=== PATIENT | female | born 1935 | race African-American/Black ===

== ENCOUNTER 2016-11-16 17:56 | Inpatient (IN) | payer SELFPAY ==
--- NOTE | 2016-11-16 18:11 | ER Document Report ---
ED Medical Screen (RME) - General Stated Complaint: STROKE LIKE SYMPTOMS Notes: 81 yo female brought to ED by family for slurred speech and confusion. family found pt with vomit on her. last seen normal approx 5pm. pt speaks [place]. no previous hx/o CVA
[2016-11-16] MEDS ORDERED: ONDANSETRON HCL INJ/PF 4 MG/2 ML SDV ONE (18:28)
[2016-11-16 19:06] LABS: HEMATOCRIT 39.8 % (36.0-47.0); HEMOGLOBIN 13.3 g/dL (12.0-15.5); HGB HCT DIFFERENCE 0.1; MEAN CORPUSCULAR HEMOGLOBIN 27.4 pg (27.0-33.4); MEAN CORPUSCULAR HGB CONC 33.4 g/dL (32.0-36.0); MEAN CORPUSCULAR VOLUME 82 fl (80-97); RED BLOOD COUNT 4.84 10^6/uL (3.72-5.28); RED CELL DISTRIBUTION WIDTH 15.9 % (11.5-14.0); WHITE BLOOD COUNT 11.3 10^3/uL (4.0-10.5)
[2016-11-16 19:13] LABS: ALANINE AMINOTRANSFERASE 19 U/L (9-52); ALBUMIN 4.7 g/dL (3.5-5.0); ALKALINE PHOSPHATASE 130 U/L (38-126); ANION GAP 17 (5-19); ASPARTATE AMINO TRANSFERASE 28 U/L (14-36); BILIRUBIN,TOTAL 2.2 mg/dL (0.2-1.3); BLOOD UREA NITROGEN 14 mg/dL (7-20); CALCIUM 10.1 mg/dL (8.4-10.2); CARBON DIOXIDE 26 mmol/L (22-30); CHLORIDE 91 mmol/L (98-107); CREATINE KINASE 37 U/L (30-135); CREATININE RESULT 0.73 mg/dL (0.52-1.25); POTASSIUM 3.4 mmol/L (3.6-5.0); SODIUM 133.5 mmol/L (137-145)
[2016-11-16 19:23] LABS: CREATINE KINASE MB 0.52 ng/mL (<4.55)
[2016-11-16 19:26] LABS: TROPONIN I < 0.012 ng/mL
[2016-11-16 19:33] LABS: GLUCOSE 607 mg/dL (75-110)
[2016-11-16] MEDS ORDERED: NORMAL SALINE 1000 ML 1,000 ML IV ONE (19:34)
[2016-11-16] MEDS ORDERED: INSULIN REG, HUMAN 100 UNIT/ML 3 ML VIAL (PYX) ONE ×2 (19:38→19:40)
[2016-11-16 19:42] LABS: BASOPHILS % (MANUAL) 0 % (0-2); EOSINOPHILS % (MANUAL) 1 % (0-6); LYMPHOCYTES % (MANUAL) 32 % (13-45); NUCLEATED RED BLOOD CELLS 2 /100 WBC (0); TOTAL CELLS COUNTED 100
[2016-11-16] MEDS ORDERED: INSULIN REG, HUMAN 100 UNIT/ML 3 ML VIAL (PYX) IV ONE (19:43)
[2016-11-16 19:44] LABS: ANISOCYTOSIS SLIGHT; TARGET CELLS 1+; TOXIC GRANULATION SLIGHT
[2016-11-16 19:55] LABS: PARTIAL THROMBOPLASTIN TIME 22.4 SEC (23.5-35.8)
[2016-11-16 20:00] LABS: PROTHROMBIN TIME 12.9 SEC (11.4-15.4)
--- NOTE | 2016-11-16 20:05 | ER Document Report ---
ED General - General Time seen by provider: 19:30 Mode of Arrival: Medic Information source: Relative <TRIPANNEMARIE Hagan - Last Filed: 11/16/16 20:00> <BELTRAN KAUR - Last Filed: 11/17/16 03:58> - General Chief Complaint: S/S of Possible Stroke Stated Complaint: STROKE LIKE SYMPTOMS Notes: 81-year-old female with report by son that she became confused and had slurred speech and vomiting and complaint of right-sided headache about 5:00 this afternoon. Son reports patient had some diarrhea yesterday but seemed fine this morning. He reports that she is from [place] and immigrated here July. He is unfamiliar with most of her past medical history but says that she is on no medicines now. Patient does not speak Latvian but he reports that she is confused and not speaking clearly in her [place]in[place] and sioux language. He reports that she is also not following commands and seems agitated. 2 His knowledge she has had no recent fever, chills, cough, or complaints of pain anywhere. Physical Exam: General: Alert, confused and agitated HEENT: Normocephalic. Atraumatic. PERRLA. Extraocular movements intact. Oropharynx clear. He does membranes dry Neck: Supple. Non-tender. No JVD Respiratory: No respiratory distress. Clear and equal breath sounds bilaterally. Cardiovascular: The cardiac rhythm. Abdominal: Normal Inspection. Soft, non-tender. No distension. Normal Bowel Sounds. Back: Non-tender. No deformity or step off. Extremities: Moves all four extremities. Upper extremities: Normal inspection. Non-tender. Normal color. Normal ROM. Normal temperature. Lower extremities: Normal inspection. Non-tender. No edema. Normal color. Normal ROM. Normal temperature. Neurological: Per the patient's son her speech is garbled. She appears to have a minimal left facial droop but cannot cooperate with further cranial nerve testing. She is observed to move all fours extremities spontaneously with what appears to be equal strength but cannot otherwise cooperate with formal neurologic testing. . Skin: Warm. Dry. Normal color. (ANNEMARIE DOMINIQUE) Past Medical History - General Cannot obtain history due to: Uncooperative, Altered mental status - Social History Smoking Status: Never Smoker Family History: Other - None known to son patient could not answer Renal/ Medical History: Denies: Hx Peritoneal Dialysis Surgical Hx: Negative <ANNEMARIE DOMINIQUE - Last Filed: 11/16/16 20:00> Review of Systems - Review of Systems -: Yes ROS unobtainable due to patient's medical condition <ANNEMARIE DOMINIQUE - Last Filed: 11/16/16 20:00> Physical Exam - Vital signs Interpretation: Tachycardic, Febrile - General General appearance: Alert In distress: Mild - HEENT Head: Normocephalic, Atraumatic Cornea: Normal Eyelashes: Normal Pupils: PERRL Nasal: Normal Mucous membranes: Dry Pharynx: Normal - Respiratory Respiratory status: No respiratory distress Breath sounds: Decreased air movement - At bases - Cardiovascular Rhythm: Regular, Tachycardia - Abdominal Inspection: Normal Tenderness: Nontender - Back Back: Normal - Extremities General upper extremity: Normal inspection, Normal ROM General lower extremity: Normal inspection, Normal ROM - Neurological Cognition: Confused [place] Coma Scale Eye Opening: Spontaneous [place] Coma Scale Verbal: Oriented [place] Coma Scale Motor: Obeys Commands [place] Coma Scale Total: 15 - Psychological Associated symptoms: Normal affect, Normal mood - Skin Skin Temperature: Hot <BELTRAN KAUR - Last Filed: 11/17/16 03:58> - Vital signs Vitals: Pulse Ox 98 11/16/16 18:01 Course - Laboratory Result Diagrams: 11/16/16 18:53 11/16/16 18:53 - Diagnostic Test Radiology reviewed: Image reviewed, Reports reviewed <ANNEMARIE DOMINIQUE - Last Filed: 11/16/16 20:00> - Laboratory Result Diagrams: 11/16/16 18:53 11/16/16 18:53 <BELTRAN KAUR - Last Filed: 11/17/16 03:58> - Re-evaluation Re-evalutation: 11/17/16 03:55 Patient is a 81-year-old female who was brought into the emergency department for possible stroke. Patient was initially evaluated by Dr. Dominique. Patient with no acute findings for CVA. CT with no acute findings. Patient was found to have a fever 103. Son states that the patient has not had any recent infection. Fever was treated and confusion resolving. I do not have any specific source for infection but there are some questionable atelectasis and I suspect the patient has pneumonia. Patient is interactive, smiling. No nuchal rigidity. I do not think that lumbar puncture is warranted on this 81-year-old patient at this time. Patient was discussed with the hospitalist will be admitted to the ICU. Antibiotics have been initiated after cultures were obtained. Stable time of admission. (BELTRAN KAUR) - Vital Signs Vital signs: Temp Pulse Resp BP Pulse Ox 102.9 F H 80 14 164/104 H 97 11/17/16 00:48 11/16/16 18:20 11/16/16 22:00 11/16/16 21:00 11/16/16 22:00 - Laboratory Laboratory results interpreted by me: 11/16/16 11/16/16 11/16/16 18:53 18:53 19:40 WBC 11.3 H RDW 15.9 H APTT 22.4 L Sodium 133.5 L Potassium 3.4 L Chloride 91 L Glucose 607 H* POC Glucose Total Bilirubin 2.2 H Alkaline Phosphatase 130 H Total Protein 9.0 H Urine Glucose (UA) Urine Ketones 11/16/16 11/16/16 11/16/16 20:40 20:42 21:54 WBC RDW APTT Sodium Potassium Chloride Glucose POC Glucose 500 H* 219 H Total Bilirubin Alkaline Phosphatase Total Protein Urine Glucose (UA) >=500 H Urine Ketones 20 H 11/16/16 11/17/16 23:01 00:55 WBC RDW APTT Sodium Potassium Chloride Glucose POC Glucose 277 H 344 H Total Bilirubin Alkaline Phosphatase Total Protein Urine Glucose (UA) Urine Ketones Critical Care Note - Critical Care Note Total time excluding time spent on procedures (mins): 35 - evaluation and management of febrile patient with multiple re-evaluations and workup of fever <BELTRAN KAUR - Last Filed: 11/17/16 03:58> Discharge <ANNEMARIE DOMINIQUE - Last Filed: 11/16/16 20:00> - Discharge Admitting Provider: [facility] Admitted: ICU <BELTRAN KAUR - Last Filed: 11/17/16 03:58> - Discharge Clinical Impression: New onset type 2 diabetes mellitus Fever Qualifiers: Fever type: unspecified Qualified Code(s): R50.9 - Fever, unspecified Condition: Stable Disposition: ADMITTED INPATIENT
--- NOTE | 2016-11-16 21:40 | EKG REPORT ---
SEVERITY:- ABNORMAL ECG - SINUS RHYTHM FIRST DEGREE AV BLOCK : Confirmed by: Leyda Pride 16-Nov-2016 21:38:03
[2016-11-16] MEDS ORDERED: DEXTROSE 40% GEL 15 GM TUBE PO PRN (22:11)
[2016-11-16] MEDS ORDERED: GLUCAGON,HUMAN RECOMB 1 MG INJ IM PRN (22:11)
[2016-11-16] MEDS ORDERED: DEXTROSE 50%-WATER 25 GM/50 ML DISP.SYRIN IV PRN (22:11)
[2016-11-16] MEDS ORDERED: NORMAL SALINE 100 ML with INSULIN REGULAR, HUMAN 100 UNIT IV PRN ×2 (22:11)
[2016-11-16 22:13] LABS: APPEARANCE,URINE CLEAR; BILIRUBIN,URINE NEGATIVE (NEGATIVE); GLUCOSE, URINE >=500 mg/dL (NEGATIVE); KETONES,URINE 20 mg/dL (NEGATIVE); LEUKOCYTE ESTERASE,URINE NEGATIVE (NEGATIVE); NITRITE,URINE NEGATIVE (NEGATIVE); PROTEIN,URINE NEGATIVE (NEGATIVE); UROBILINOGEN,URINE NEGATIVE mg/dL (<2.0)
[2016-11-16] MEDS ORDERED: ACETAMINOPHEN 325 MG TABLET PO ONE (22:24)
[2016-11-16] MEDS ORDERED: CEFEPIME 2 GM/D5W RTU 50 ML IV ONE (22:42)
[2016-11-16] MEDS ORDERED: DIPHENHYDRAMINE HCL 50 MG/ML VIAL ONE (23:45)
[2016-11-17] MEDS ORDERED: ACETAMINOPHEN 650 MG SUPP.RECT PR ONE (00:54)
[2016-11-17] MEDS ORDERED: ACETAMINOPHEN 325 MG SUPP.RECT PR ONE (00:54)
[2016-11-17] MEDS ORDERED: IBUPROFEN 800 MG TABLET PO ONE (01:08)
[2016-11-17] MEDS ORDERED: VANCOMYCIN HCL INJ 1000 MG VIAL IV ONE (01:21)
[2016-11-17] MEDS ORDERED: LEVOFLOXACIN 750 MG/D5W RTU 150 ML IV ONE (01:21)
[2016-11-17] MEDS ORDERED: DEXAMETHASONE SOD PHOSPHATE IV SCH ×5 (02:45→10:00)
[2016-11-17] MEDS ORDERED: DEXTROSE 5% IV SCH ×5 (02:45→10:00)
[2016-11-17] MEDS ORDERED: WATER IV SCH ×5 (02:45→10:00)
[2016-11-17] MEDS ORDERED: AMPICILLIN SOD INJ 2 GM VIAL IV SCH ×2 (02:45→08:00)
[2016-11-17] MEDS ORDERED: VANCOMYCIN HCL 0 MG in DEXTROSE 5%-WATER 250 ML IV NR (02:45)
[2016-11-17] MEDS ORDERED: DEXTROSE 50%-WATER 25 GM/50 ML DISP.SYRIN IV PRN ×2 (02:50)
[2016-11-17] MEDS ORDERED: GLUCAGON,HUMAN RECOMB 1 MG INJ IM PRN (02:50)
[2016-11-17] MEDS ORDERED: NORMAL SALINE 100 ML with INSULIN REGULAR, HUMAN 100 UNIT IV PRN ×2 (02:50)
[2016-11-17] MEDS ORDERED: DEXTROSE 40% GEL 15 GM TUBE PO PRN ×2 (02:50)
[2016-11-17] MEDS ORDERED: ACETAMINOPHEN 650 MG SUPP.RECT PR PRN (02:59)
[2016-11-17] MEDS ORDERED: NORMAL SALINE 1000 ML 1,000 ML IV PRN (02:59)
[2016-11-17] MEDS ORDERED: CEFTRIAXONE 2 GM/D5W RTU 50 ML IV SCH (03:00)
--- NOTE | 2016-11-17 03:21 | PDOC H&P ---
History of Present Illness Admission Date/PCP: 11/17/16 01:36 PCP--uncertain Patient complains of: stroke like symptoms History of Present Illness: ADRIENNE GALLO is a 81 year old known female resident of [facility] , having moved [place] this country in [place] to be with her son, who presents to the emergency room for evaluation of above. Patient has been discussed with emergency room physician who evaluated the patient. Patient is is able to provide no history whatsoever in terms of acute or chronic events, review of systems, personal habits, family history, etc. No friends or family are present. No inpatient records available for review. Per nursing staff, patient is more awake and alert than upon arrival but does not interact with her surroundings or staff in a meaningful fashion. She speaks no Malawian. When we attempted to use the [employer] translation device, she would not respond despite a number of attempts by the online clerk carrier. I left a generic voicemail to call me at the hospital as soon as possible with the contact number for her son at 2:30 AM on 11/17/2016. Have not heard back. Emergency room physician notes reviewed. No further information available this point in time. . Laboratory results are listed in [employer] and are reviewed. X-ray summary results are listed below, with full report(s) reviewed. . EKG reviewed. No old EKG available for comparison. Social history/personal habits: No further information available this point in time. Allergies/adverse reactions No further information available this point in time. Home medications according to his son's comments to ER staff, patient is on no medication at this point in time. REVIEW OF SYSTEMS: See history and present illness.No further information available this point in time. PHYSICAL EXAMINATION: 5 feet 5 inches tall. 70.5 kg. BMI 25.9 kg/m. Blood pressure 140/93. Pulse 103 and regular. 95% saturation on room air. Respirations are 19 and unlabored. Temperature 102.9 shortly before 1 AM. Skin does not feel is warm at the present time. Well-nourished well-developed -[place] female who appears a fair number of years younger than her stated age. She is awake, looking about the room in somewhat of a sluggish fashion. Nonverbal. Does not interact in a meaningful fashion with staff or her surroundings. Female emergency room nurse Sujey is present. Skin is warm and dry. No grossly obvious evidence of rash in areas of skin examined. No subcutaneous nodules palpated. No evidence of infection upon examination of all her skin surfaces, including buttock region, backs, and breasts. ENT: [Hearing difficult to evaluate due to her current status. No Ruano sign Eyes: No scleral icterus. Pupils equal and reactive to light at 5 mm. [place] conjunctivae. No raccoon eyes Neck is supple and nontender to gentle active range of motion and palpation. Midline trachea. No palpable thyroid nodule mass enlargement or tenderness. Lymphatic: No palpable cervical or clavicular nodes. Neck and lymphatic exams limited by patient body habitus. Psychiatric: Not able to be adequately evaluated due to her current status. Lungs: Auscultation reveals clear and equal breath sounds bilaterally. No use of accessory respiratory muscles. Cardiovascular: Heart regular rate and rhythm, without gallop murmur or rub. No carotid or abdominal aortic bruits. No ankle or pedal edema. Faintly palpable dorsalis pedis pulses. Abdomen: soft, , slightly distended nontender with positive bowel sounds. Unable to adequately evaluate abdomen for masses or organomegaly due to distention. Extremities: Hands and Feet are warm and dry. No upper or lower extremity tenderness to compression. No grossly obvious visual evidence of upper or lower extremity swelling. Gentle manipulation of all 4 extremities fails to reveal any obvious evidence of injury or instability to involved major joints. Palpation of cranium, clavicles, thorax, upper and lower extremities, and pelvis failed to reveal any obvious evidence of injury or instability. Neurologic: [Moves all 4 extremities grossly normally. Patellar reflexes absent. Absent Babinski. Light touch can't be evaluated due to her current status.. No rigidity. No ankle clonus. No nystagmus. Social History Information Source: Emergency Med Personnel, [facility] Records Lives with: Family - Likely lives with son. Not completely certain. Smoking Status: Unknown if Ever Smoked Frequency of Alcohol Use: None - No information available this point in time. Hx Recreational Drug Use: No - No information available this point in time. Drugs: None - No information available this point in time. Hx Prescription Drug Abuse: No - No information available this point in time. - Advance Directive Resuscitation Status: Full Code Surrogate healthcare decision maker:: Probably son. Family History Family History: Other - None known to son patient could not answer Parental Family History Reviewed: No - No information available this point in time. Children Family History Reviewed: No - No information available this point in time. Sibling(s) Family History Reviewed.: No - No information available this point in time. Physical Exam Vital Signs: Temp Pulse Resp BP Pulse Ox 102.9 F H 80 14 164/104 H 97 11/17/16 00:48 11/16/16 18:20 11/16/16 22:00 11/16/16 21:00 11/16/16 22:00 Results Impressions: Chest X-Ray 11/16/16 18:01 IMPRESSION: LOW LUNG VOLUMES. NO SIGNIFICANT RADIOGRAPHIC FINDING IN THE CHEST. Head CT 11/16/16 18:01 IMPRESSION: CHRONIC CHANGES OF ATROPHY AND MICROVASCULAR ISCHEMIA. NO ACUTE PROCESS. Abdomen/Pelvis CT 11/17/16 00:00 IMPRESSION: Gallstone. L1 compression fracture age indeterminate. Chest CT 11/17/16 00:00 IMPRESSION: Dependent atelectasis. 1.7 cm mass in the thyroid gland on the right. Assessment & Plan - Diagnosis (1) Acute encephalopathy Is this a current diagnosis for this admission?: YesPlan: With fever, will proceed as for encephalitis, with empiric anabiotic coverage for meningitis. Due to her elevated liver functions, will hold rifampin at that this point in time. Planned lumbar puncture, image guided. Multiple further labs. Knee high SCDs for DVT prophylaxis,; with plan lumbar puncture, will forego Lovenox or heparin at this point in time. Time spent in evaluation and management of patient: 65 minutes. (2) Cholelithiasis Qualifiers: Cholelithiasis location: gallbladder Cholecystitis presence: without cholecystitis Is this a current diagnosis for this admission?: YesPlan: Abdomen soft and completely nontender. No bile duct dilatation on CT. Follow clinically at this point in time. (3) Elevated LFTs Is this a current diagnosis for this admission?: YesPlan: Follow-up chemistry. (4) Fever Qualifiers: Fever type: unspecified Qualified Code(s): R50.9 - Fever, unspecified Is this a current diagnosis for this admission?: Yes (5) Hyperglycemia Is this a current diagnosis for this admission?: YesPlan: Continue insulin drip. Hourly Accu-Cheks. Serial chemistry. (6) Hypokalemia Is this a current diagnosis for this admission?: YesPlan: Follow-up chemistry. Supplemented as necessary. (7) Lumbar compression fracture Qualifiers: Encounter type: initial encounter Is this a current diagnosis for this admission?: Yes (8) Thyroid nodule Is this a current diagnosis for this admission?: YesPlan: Thyroid ultrasound. - Inpatient Certification Based on my medical assessment, after consideration of the patient's comorbidities, presenting symptoms, or acuity I expect that the services needed warrant INPATIENT care.: Yes I certify that my determination is in accordance with my understanding of Medicare's requirements for reasonable and necessary INPATIENT services [42 CFR 412.3e].: Yes Medical Necessity: Need Close Monitoring Due to Risk of Patient Decompensation, Need For IV Fluids, Need For Continuous Telemetry Monitoring, Need for IV Antibiotics, Risk of Complication if Not Cared For in Hospital, Risk of Diagnosis Which Will Require Inpatient Eval/Care/Monitoring Post Hospital Care: D/C or Transfer Summary
[2016-11-17 04:23] LABS: URINE BARBITURATES SCREEN NEGATIVE; URINE METHADONE SCREEN NEGATIVE; URINE OPIATES LOW NEGATIVE; URINE PHENCYCLIDINE SCREEN NEGATIVE
[2016-11-17 04:26] LABS: VENOUS BLOOD BASE EXCESS -2.7 mmol/L; VENOUS BLOOD HCO3 21.9 mmol/L (20-32); VENOUS BLOOD PCO2 37.6 mmHg (35-63); VENOUS BLOOD PH 7.38 (7.30-7.42)
[2016-11-17 04:39] LABS: ABSOLUTE BASOPHILS # (AUTO) 0.1 10^3/uL (0.0-0.2); ABSOLUTE LYMPHOCYTES (AUTO) 2.2 10^3/uL (0.5-4.7); ABSOLUTE MONOCYTES (AUTO) 0.9 10^3/uL (0.1-1.4); ABSOLUTE NEUT (AUTO) 11.4 10^3/uL (1.7-8.2); BASOPHILS % (AUTO) 0.6 % (0-2); HEMATOCRIT 38.1 % (36.0-47.0); HEMOGLOBIN 12.5 g/dL (12.0-15.5); HGB HCT DIFFERENCE -0.6; LYMPHOCYTES % (AUTO) 15.3 % (13-45); MEAN CORPUSCULAR HEMOGLOBIN 27.5 pg (27.0-33.4); MEAN CORPUSCULAR HGB CONC 32.9 g/dL (32.0-36.0); MEAN CORPUSCULAR VOLUME 84 fl (80-97); MONOCYTES % (AUTO) 5.9 % (3-13); RED BLOOD COUNT 4.55 10^6/uL (3.72-5.28); RED CELL DISTRIBUTION WIDTH 16.1 % (11.5-14.0); SEGMENTED NEUTROPHILS % (AUTO) 78.2 % (42-78); WHITE BLOOD COUNT 14.6 10^3/uL (4.0-10.5)
[2016-11-17 04:46] LABS: ALANINE AMINOTRANSFERASE 28 U/L (9-52); ALBUMIN 4.5 g/dL (3.5-5.0); ALKALINE PHOSPHATASE 104 U/L (38-126); ANION GAP 17 (5-19); ASPARTATE AMINO TRANSFERASE 21 U/L (14-36); BILIRUBIN,TOTAL 2.8 mg/dL (0.2-1.3); BLOOD UREA NITROGEN 8 mg/dL (7-20); CALCIUM 9.7 mg/dL (8.4-10.2); CARBON DIOXIDE 25 mmol/L (22-30); CHLORIDE 98 mmol/L (98-107); CREATININE RESULT 0.47 mg/dL (0.52-1.25); GLUCOSE 258 mg/dL (75-110); MAGNESIUM 1.5 mg/dL (1.6-2.3); PHOSPHORUS 2.9 mg/dL (2.5-4.5); POTASSIUM 3.1 mmol/L (3.6-5.0); SODIUM 139.5 mmol/L (137-145); TOTAL PROTEIN 8.5 g/dL (6.3-8.2)
[2016-11-17 04:47] LABS: ALCOHOL < 10 mg/dL (NONE DETECTED)
[2016-11-17] MEDS ORDERED: IBUPROFEN 800 MG TABLET ONE (05:26)
[2016-11-17] MEDS ORDERED: POTASSI CL 20 MEQ/D5NS 1L 1,000 ML IV PRN (05:38)
[2016-11-17] MEDS ORDERED: CEFEPIME 2 GM/D5W RTU 2 GM/50 ML RTUPB IV ONE (05:40)
[2016-11-17] MEDS ORDERED: POTASSI CL 20 MEQ/50 ML RIDER 50 ML IV SCH (05:45)
[2016-11-17 06:27] LABS: FREE T3 2.79 pg/mL (2.77-5.27)
[2016-11-17] MEDS ORDERED: POTASSIUM CHLORIDE 10 MEQ TABLET.SA PO ONE ×2 (08:00→15:15)
[2016-11-17] MEDS: POTASSI CL 20 MEQ/NS 1L 1,000 ML IV PRN (09:13)
[2016-11-17] MEDS ORDERED: CEFTRIAXONE 2 GM/D5W RTU 2 GM/50 ML RTUPB IV SCH (10:00)
[2016-11-17] MEDS ORDERED: AMPICILLIN SODIUM 2 GM in NORMAL SALINE 100 ML IV SCH (10:00)
[2016-11-17] MEDS ORDERED: VANCOMYCIN HCL 750 MG in DEXTROSE 5%-WATER 250 ML IV SCH (10:00)
[2016-11-17] MEDS: ACYCLOVIR SODIUM 700 MG in NORMAL SALINE 100 ML IV SCH ×2 (10:52→17:31)
[2016-11-17 11:04] LABS: ANION GAP 12 (5-19); BLOOD UREA NITROGEN 7 mg/dL (7-20); CALCIUM 9.7 mg/dL (8.4-10.2); CARBON DIOXIDE 30 mmol/L (22-30); CHLORIDE 98 mmol/L (98-107); CREATININE RESULT 0.49 mg/dL (0.52-1.25); GLUCOSE 131 mg/dL (75-110); POTASSIUM 3.1 mmol/L (3.6-5.0); SODIUM 139.9 mmol/L (137-145)
[2016-11-17] MEDS ORDERED: CEFTRIAXONE 2 GM/D5W RTU 2 GM/50 ML RTUPB IV ONE (12:00)
[2016-11-17] MEDS: MAGNESIUM SULFATE 1 GM/D5W 100 ML IV SCH ×2 (12:00→12:50)
[2016-11-17] MEDS: AMPICILLIN SODIUM 2 GM in NORMAL SALINE 100 ML IV SCH ×2 (12:18→17:31)
--- NOTE | 2016-11-17 15:08 | PDOC PROGRESS REPORT ---
Subjective Progress Note for:: 11/17/16 Subjective:: Patient is stable per nursing staff. I cannot communicate with patient she does not speak Armenian and [employer] service is not able to provide translation for patient's [place] language either. She is alert and verbal in her [place] language and seems to be smiling and laughing at times during my evaluation. Physical Exam Vital Signs: Temp Pulse Resp BP Pulse Ox 99.0 F 91 15 135/76 H 96 11/17/16 13:00 11/17/16 12:00 11/17/16 12:00 11/17/16 12:28 11/17/16 13:00 Intake & Output 11/16/16 11/17/16 11/18/16 06:59 06:59 06:59 Intake Total 1999 Output Total 1999 325 Balance 0 -325 Weight 54 kg GENERAL: No acute distress HEENT: Conjunctiva clear, nonicteric, moist mucous membranes, no JVD, midline trachea RESPIRATORY: Clear to auscultation bilaterally, no wheezes, no rhonchi CARDIAC: Regular rate and rhythm, no murmurs/gallops/rubs ABDOMEN: Soft, nondistended, nontender, positive bowel sounds, no rebound, no guarding EXTREMETIES: No edema, cyanosis, clubbing NEUROLOGIC: Alert, unable to ask orientation question secondary to language barrier, CN's grossly intact, no focal deficits SKIN: No rash, wounds PSYCH: Normal mood, normal affect Results Laboratory Results: 11/17/16 04:15 11/17/16 10:19 11/17/16 11/17/16 11/17/16 04:15 04:15 04:15 WBC 14.6 H RBC 4.55 Hgb 12.5 Hct 38.1 MCV 84 MCH 27.5 MCHC 32.9 RDW 16.1 H Plt Count 167 Seg Neutrophils % 78.2 H Lymphocytes % 15.3 Monocytes % 5.9 Eosinophils % 0.0 Basophils % 0.6 Absolute Neutrophils 11.4 H Absolute Lymphocytes 2.2 Absolute Monocytes 0.9 Absolute Eosinophils 0.0 Absolute Basophils 0.1 VBG pH VBG pCO2 VBG HCO3 VBG Base Excess Sodium 139.5 Potassium 3.1 L Chloride 98 Carbon Dioxide 25 Anion Gap 17 BUN 8 Creatinine 0.47 L Est GFR ( Amer) > 60 Est GFR (Non-Af Amer) > 60 Glucose 258 H Calcium 9.7 Phosphorus 2.9 Magnesium 1.5 L Total Bilirubin 2.8 H AST 21 ALT 28 Alkaline Phosphatase 104 Ammonia < 8.7 L Total Protein 8.5 H Albumin 4.5 TSH Free T4 Free T3 pg/mL 11/17/16 11/17/16 11/17/16 04:15 04:15 04:15 WBC RBC Hgb Hct MCV MCH MCHC RDW Plt Count Seg Neutrophils % Lymphocytes % Monocytes % Eosinophils % Basophils % Absolute Neutrophils Absolute Lymphocytes Absolute Monocytes Absolute Eosinophils Absolute Basophils VBG pH 7.38 VBG pCO2 37.6 VBG HCO3 21.9 VBG Base Excess -2.7 Sodium Potassium Chloride Carbon Dioxide Anion Gap BUN Creatinine Est GFR ( Amer) Est GFR (Non-Af Amer) Glucose Calcium Phosphorus Magnesium Total Bilirubin AST ALT Alkaline Phosphatase Ammonia Total Protein Albumin TSH 0.09 L Free T4 1.61 Free T3 pg/mL 2.79 11/17/16 10:19 WBC RBC Hgb Hct MCV MCH MCHC RDW Plt Count Seg Neutrophils % Lymphocytes % Monocytes % Eosinophils % Basophils % Absolute Neutrophils Absolute Lymphocytes Absolute Monocytes Absolute Eosinophils Absolute Basophils VBG pH VBG pCO2 VBG HCO3 VBG Base Excess Sodium 139.9 Potassium 3.1 L Chloride 98 Carbon Dioxide 30 Anion Gap 12 BUN 7 Creatinine 0.49 L Est GFR ( Amer) > 60 Est GFR (Non-Af Amer) > 60 Glucose 131 H Calcium 9.7 Phosphorus Magnesium Total Bilirubin AST ALT Alkaline Phosphatase Ammonia Total Protein Albumin TSH Free T4 Free T3 pg/mL 11/17/16 04:15 Troponin I < 0.012 Impressions: Chest X-Ray 11/16/16 18:01 IMPRESSION: LOW LUNG VOLUMES. NO SIGNIFICANT RADIOGRAPHIC FINDING IN THE CHEST. Head CT 11/16/16 18:01 IMPRESSION: CHRONIC CHANGES OF ATROPHY AND MICROVASCULAR ISCHEMIA. NO ACUTE PROCESS. Abdomen/Pelvis CT 11/17/16 00:00 IMPRESSION: Gallstone. L1 compression fracture age indeterminate. Chest CT 11/17/16 00:00 IMPRESSION: Dependent atelectasis. 1.7 cm mass in the thyroid gland on the right. Thyroid Ultrasound 11/17/16 00:00 IMPRESSION: Left and right lobe 2 cm complex solid-cystic nodules with internal blood flow demonstrated on color Doppler interrogation. Assessment & Plan - Diagnosis (1) Sepsis Is this a current diagnosis for this admission?: YesPlan: Etiology unclear. Influenza screen negative. Patient has cholelithiasis noted on CT scan of the abdomen and pelvis. I will check right upper quadrant ultrasound to exclude further evidence of acute cholecystitis. Lumbar puncture is pending although patient does not have any definite meningeal signs. CT scan of the chest is negative for pneumonia. Urinalysis is negative. (2) New onset type 2 diabetes mellitus Is this a current diagnosis for this admission?: YesPlan: Continue sliding scale insulin coverage. Discontinue Decadron if lumbar puncture negative for SENIOR DIRECTOR OF STRATEGY infection. (3) Cholelithiasis Qualifiers: Cholelithiasis location: gallbladder Cholecystitis presence: without cholecystitis Is this a current diagnosis for this admission?: YesPlan: Given the elevated total bilirubin I would like to check right upper quadrant ultrasound. (4) Hypokalemia Is this a current diagnosis for this admission?: YesPlan: Replace as needed. Address hypomagnesemia as well. (5) Hypomagnesemia Is this a current diagnosis for this admission?: Yes (6) Thyroid nodule Is this a current diagnosis for this admission?: YesPlan: Thyroid Ultrasound 11/17/16 00:00 IMPRESSION: Left and right lobe 2 cm complex solid-cystic nodules with internal blood flow demonstrated on color Doppler interrogation. This will need further outpatient workup. - Time Time Spent with patient: 35 or more minutes Anticipated discharge: Home Disposition: Patient is from [facility] and here visiting her son who is apparently a [employer]. She does not speak Armenian and tele-chief engineer drilling and recovery services do not speak patient's [place] language.
[2016-11-17 18:14] LABS: APPEARANCE TUBE 1 CLEAR; APPEARANCE TUBE 2 CLEAR
[2016-11-17 18:16] LABS: RBC AVERAGE 121.5; RBC DILUENT USED NONE USED; RBC DILUTION FACTOR 1; RBC SIDE 1 120; RBC SIDE 2 123; TOTAL RBC SQUARES COUNTED 125
[2016-11-17 18:17] LABS: WHITE BLOOD CELL,CSF 36 /uL (0-5)
[2016-11-17 18:57] LABS: GLUCOSE,CSF 126 mg/dL (40-70)
[2016-11-17] MEDS ORDERED: PIPERACILLIN SODIUM/TAZOBACTAM 4.5 GM in NORMAL SALINE 100 ML IV SCH (20:00)
[2016-11-17] MEDS: PIPERACILLIN SODIUM/TAZOBACTAM 3.375 GM in NORMAL SALINE 100 ML IV SCH (21:17)
[2016-11-18] MEDS: PIPERACILLIN SODIUM/TAZOBACTAM 3.375 GM in NORMAL SALINE 100 ML IV SCH ×2 (06:13→09:19)
[2016-11-18] MEDS: POTASSI CL 20 MEQ/NS 1L 1,000 ML IV PRN ×2 (06:35→11:35)
[2016-11-18 07:12] LABS: HEMATOCRIT 35.6 % (36.0-47.0); HGB HCT DIFFERENCE 0.4; MEAN CORPUSCULAR HEMOGLOBIN 27.4 pg (27.0-33.4); MEAN CORPUSCULAR HGB CONC 33.8 g/dL (32.0-36.0); MEAN CORPUSCULAR VOLUME 81 fl (80-97); RED BLOOD COUNT 4.38 10^6/uL (3.72-5.28); RED CELL DISTRIBUTION WIDTH 15.5 % (11.5-14.0); WHITE BLOOD COUNT 15.1 10^3/uL (4.0-10.5)
[2016-11-18 07:15] LABS: ANION GAP 15 (5-19); BLOOD UREA NITROGEN 11 mg/dL (7-20); CALCIUM 9.5 mg/dL (8.4-10.2); CARBON DIOXIDE 23 mmol/L (22-30); CHLORIDE 100 mmol/L (98-107); CREATININE RESULT 0.44 mg/dL (0.52-1.25); GLUCOSE 191 mg/dL (75-110); MAGNESIUM 1.9 mg/dL (1.6-2.3)
[2016-11-18 07:26] LABS: POTASSIUM 4.5 mmol/L (3.6-5.0)
[2016-11-18 07:43] LABS: BAND NEUTROPHILS % (MANUAL) 1 % (3-5); BASOPHILS % (MANUAL) 0 % (0-2); EOSINOPHILS % (MANUAL) 0 % (0-6); LYMPHOCYTES % (MANUAL) 19 % (13-45); NUCLEATED RED BLOOD CELLS 1 /100 WBC (0); TOTAL CELLS COUNTED 100
[2016-11-18 07:46] LABS: ANISOCYTOSIS 1+; OVALOCYTES SLIGHT; POIKILOCYTOSIS 1+; POLYCHROMASIA 1+; SCHISTOCYTES SLIGHT; TARGET CELLS 1+
[2016-11-18] MEDS ORDERED: CEFTRIAXONE 1 GM/D5W RTU 50 ML IV SCH (10:00)
[2016-11-18] MEDS ORDERED: POTASSI CL 20 MEQ/1/2NS 1L 1,000 ML IV PRN (12:08)
[2016-11-18] MEDS ORDERED: GLUCAGON,HUMAN RECOMB 1 MG INJ IM PRN (12:10)
[2016-11-18] MEDS ORDERED: DEXTROSE 40% GEL 15 GM TUBE PO PRN ×2 (12:10)
[2016-11-18] MEDS ORDERED: DEXTROSE 50%-WATER 25 GM/50 ML DISP.SYRIN IV PRN ×2 (12:10)
[2016-11-18] MEDS: CEFTRIAXONE 2 GM/D5W RTU 2 GM/50 ML RTUPB IV SCH (13:21)
[2016-11-18] MEDS: ACYCLOVIR SODIUM 750 MG in NORMAL SALINE 250 ML IV SCH ×2 (13:57→22:41)
[2016-11-18] MEDS ORDERED: VANCOMYCIN HCL 0 MG in DEXTROSE 5%-WATER 250 ML IV NR (14:30)
--- NOTE | 2016-11-18 14:44 | PDOC PROGRESS REPORT ---
Subjective Progress Note for:: 11/18/16 Subjective:: I have seen patient in presence of her son and he translated. She complains of right first toe pain, swelling. No fever x 24hr. Physical Exam Vital Signs: Temp Pulse Resp BP Pulse Ox 98.1 F 93 18 155/77 H 99 11/18/16 11:39 11/18/16 11:39 11/18/16 11:39 11/18/16 11:39 11/18/16 11:39 Intake & Output 11/17/16 11/18/16 11/19/16 06:59 06:59 06:59 Intake Total 1999 2475 480 Output Total 1999 4025 400 Balance 0 -1550 80 Weight 54 kg 56.2 kg GENERAL: No acute distress HEENT: Conjunctiva clear, nonicteric, moist mucous membranes, no JVD, midline trachea RESPIRATORY: Clear to auscultation bilaterally, no wheezes, no rhonchi CARDIAC: Regular rate and rhythm, no murmurs/gallops/rubs ABDOMEN: Soft, nondistended, nontender, positive bowel sounds, no rebound, no guarding EXTREMETIES: No edema, cyanosis, clubbing NEUROLOGIC: Alert, oriented x 3, CN's grossly intact, no focal deficits SKIN: abscess/ulcer of right 1st toe PSYCH: Normal mood, normal affect Results Laboratory Results: 11/18/16 06:11 11/18/16 06:11 11/17/16 11/17/16 11/17/16 16:15 16:15 16:15 WBC RBC Hgb Hct MCV MCH MCHC RDW Plt Count Seg Neutrophils % Lymphocytes % Monocytes % Eosinophils % Basophils % Absolute Neutrophils Absolute Lymphocytes Absolute Monocytes Absolute Eosinophils Absolute Basophils Sodium Potassium Chloride Carbon Dioxide Anion Gap BUN Creatinine Est GFR ( Amer) Est GFR (Non-Af Amer) Glucose Calcium Magnesium Fluid Tube Number 1 CSF Volume 1.3 CSF WBC 36 H CSF RBC 243 CSF Color (1) COLORLESS CSF Appearance (1) CLEAR CSF Color (2) COLORLESS CSF Appearance (2) CLEAR CSF Comment CSF Glucose 126 H CSF Total Protein PEP Cancelled CSF Total Protein 79 H CSF Prealbumin Cancelled CSF Albumin Cancelled CSF Afmxz-1-Bkwiliio Cancelled CSF Qkfxs-1-Pafaioyr Cancelled CSF Beta Globulin Cancelled CSF Gamma Globulin Cancelled CSF PEP M-Aries Cancelled 11/17/16 11/18/16 11/18/16 16:15 06:11 06:11 WBC 15.1 H RBC 4.38 Hgb 12.0 Hct 35.6 L MCV 81 MCH 27.4 MCHC 33.8 RDW 15.5 H Plt Count 163 Seg Neutrophils % Not Reportable Lymphocytes % Not Reportable Monocytes % Not Reportable Eosinophils % Not Reportable Basophils % Not Reportable Absolute Neutrophils Not Reportable Absolute Lymphocytes Not Reportable Absolute Monocytes Not Reportable Absolute Eosinophils Not Reportable Absolute Basophils Not Reportable Sodium 138.0 Potassium 4.5 D Chloride 100 Carbon Dioxide 23 Anion Gap 15 BUN 11 Creatinine 0.44 L Est GFR ( Amer) > 60 Est GFR (Non-Af Amer) > 60 Glucose 191 H Calcium 9.5 Magnesium 1.9 Fluid Tube Number CSF Volume CSF WBC CSF RBC CSF Color (1) CSF Appearance (1) CSF Color (2) CSF Appearance (2) CSF Comment Cancelled CSF Glucose CSF Total Protein PEP CSF Total Protein CSF Prealbumin CSF Albumin CSF Pauen-9-Xdfnkhzs CSF Fjwgh-0-Tsgbmxfj CSF Beta Globulin CSF Gamma Globulin CSF PEP M-Aries 11/17/16 04:15 Troponin I < 0.012 Impressions: Chest X-Ray 11/16/16 18:01 IMPRESSION: LOW LUNG VOLUMES. NO SIGNIFICANT RADIOGRAPHIC FINDING IN THE CHEST. Head CT 11/16/16 18:01 IMPRESSION: CHRONIC CHANGES OF ATROPHY AND MICROVASCULAR ISCHEMIA. NO ACUTE PROCESS. Abdomen/Pelvis CT 11/17/16 00:00 IMPRESSION: Gallstone. L1 compression fracture age indeterminate. Chest CT 11/17/16 00:00 IMPRESSION: Dependent atelectasis. 1.7 cm mass in the thyroid gland on the right. Guidance Fluoroscopy 11/17/16 00:00 IMPRESSION: Lumbar puncture under fluoroscopy. No immediate complication. Very limited low volume tap, 1.5 mL of fluid was obtained. Thyroid Ultrasound 11/17/16 00:00 IMPRESSION: Left and right lobe 2 cm complex solid-cystic nodules with internal blood flow demonstrated on color Doppler interrogation. Lumbar Puncture 11/17/16 02:42 IMPRESSION: Lumbar puncture under fluoroscopy. No immediate complication. Very limited low volume tap, 1.5 mL of fluid was obtained. Abdomen Ultrasound 11/17/16 08:15 IMPRESSION: Somewhat limited study as noted above. Gallstones are identified. Other findings as noted above Assessment & Plan - Diagnosis (1) Sepsis Is this a current diagnosis for this admission?: YesPlan: Likely due to DM right foot infection. Influenza screen negative. Patient has cholelithiasis noted on CT scan of the abdomen and pelvis. Right upper quadrant ultrasound with no acute process. Lumbar puncture does not have any definite evidence of ELECTRICIAN OFFICE infection, but culture pending. CT scan of the chest is negative for pneumonia. Urinalysis is negative. Continue IV Rocephin, Vanc, Unasyn until CSF cultures negative x 48hr. (2) Diabetic foot ulcer Qualifiers: Diabetic foot ulcer location: toe Diabetes mellitus type: type 2 Laterality: right Non-pressure ulcer stage: unspecified non-pressure ulcer stage Qualified Code(s): E11.621 - Type 2 diabetes mellitus with foot ulcer; L97.519 - Non-pressure chronic ulcer of other part of right foot with unspecified severity Is this a current diagnosis for this admission?: YesPlan: Continue antibiotics. Check xray. Consult surgery. (3) New onset type 2 diabetes mellitus Is this a current diagnosis for this admission?: YesPlan: Continue sliding scale insulin coverage. Start metformin 500mg BID. Will need to arrange local PCP after discharge. (4) Cholelithiasis Qualifiers: Cholelithiasis location: gallbladder Cholecystitis presence: without cholecystitis Is this a current diagnosis for this admission?: YesPlan: No infection. (5) Hypokalemia Is this a current diagnosis for this admission?: Yes (6) Hypomagnesemia Is this a current diagnosis for this admission?: Yes (7) Thyroid nodule Is this a current diagnosis for this admission?: YesPlan: Thyroid Ultrasound 11/17/16 00:00 IMPRESSION: Left and right lobe 2 cm complex solid-cystic nodules with internal blood flow demonstrated on color Doppler interrogation. This will need further outpatient workup. - Time Time Spent with patient: 35 or more minutes
[2016-11-18] MEDS: AMPICILLIN SODIUM/SULBACTAM NA 1.5 GM in NORMAL SALINE 50 ML IV SCH ×2 (16:06→20:49)
--- NOTE | 2016-11-18 16:53 | OPERATIVE REPORT E ---
Operative Report NAME: ADRIENNE GALLO : 1935 AGE: 81Y DATE OF SURGERY: 11/18/2016 ROOM: 328 BEDSIDE OPERATIVE PROCEDURE PREOPERATIVE DIAGNOSIS: A 81-YEAR-OLD FEMALE PATIENT WITH DIAGNOSIS OF RIGHT GREAT TOE SOFT TISSUE INFECTION. POSTOPERATIVE DIAGNOSIS: BASICALLY, RIGHT GREAT TOE ABSCESS AT THE TIP OF DISTAL PHALANX WITH NECROTIC TISSUE EXTENDING UP TO THE TENDON LEVEL. OPERATION: Incision and drainage of abscess of great toe of distal phalanx and limited debridement of the necrotic tissue up to the deep fascial tissue. SURGEON: SHAILESH MARTIN M.D. PROCEDURE: Performed on the bedside. The patient has diabetic foot and does not feel any pain denied any fever . After clipping, area was cleaned and draped in a sterile field and then with sharp scissors, abscess cavity and the tip of the right great toe over the proximal phalanx was opened up and abscess about 2 mL of the pus was drained and then underlying necrotic soft tissue was debrided up to the tendinous level. The wound appeared to be at this point completely absolutely healthy, so at this point wound was irrigated, dressings were applied. The patient tolerated the procedure very well. DICTATING PHYSICIAN: SHAILESH MARTIN M.D. [id number] PHY#: [id number] ID: [id number] JOB#: [id number] ACCT: [id number] cc:SHAILESH MARTIN M.D. > [facility]
--- NOTE | 2016-11-18 17:18 | CONSULTATION REPORT E ---
Consultation Report NAME: ADRIENNE GALLO : 1935 AGE: 81Y DATE: 11/18/2016 328 A TO: SHAILESH MARTIN M.D. FROM: LYNN HOLCOMB M.D. Requesting Physician HISTORY OF PRESENT ILLNESS: A 81-year-old female patient consulted from medical service for grade 2 infection at the tip of the great toe right side. The patient cannot communicate with any Indian, apparently a diabetic and known to have a sore on the right great toe, and she also has an elevated white count. Again, cannot obtain a history from the patient but from medical records, diabetes. PHYSICAL EXAMINATION: GENERAL: Elderly female patient not in any distress. HEAD/NECK: No lymphadenopathy, no masses. RESPIRATORY: Both lungs good air entry. CARDIOVASCULAR: Heart sounds regular. ABDOMINAL: Soft, nontender. EXTREMITIES: Lower extremities are warm and well perfused. Right great toe, there is a blister with a soft tissue abscess surrounding the tip of the distal phalanx. The foot itself is normal. No palpable pedal pulses but she has warm feet on both sides. IMPRESSION OVERALL: Right great toe infection and abscess with soft tissue necrosis. PLAN: We will perform excisional sharp debridement at the bedside. DICTATING PHYSICIAN: SHAILESH MARTIN M.D. [id number] PHY#: [id number] ID: [id number] JOB#: [id number] ACCT: [id number] cc:SHAILESH MARTIN M.D. > [facility]
[2016-11-18] MEDS: INSULIN LISPRO 100 UNIT/ML 3 ML VIAL SUBCUT PRN (17:19)
[2016-11-18] MEDS: METFORMIN HCL 500 MG TABLET PO SCH (17:23)
[2016-11-18] MEDS: ACETAMINOPHEN 325 MG TABLET PO PRN (17:24)
[2016-11-18] MEDS: LISINOPRIL 10 MG TABLET PO SCH (17:24)
[2016-11-18] MEDS: VANCOMYCIN HCL 750 MG in DEXTROSE 5%-WATER 250 ML IV SCH (18:26)
[2016-11-18] MEDS ORDERED: INFLUENZA ADLT QUAD (36MOS+) 2016-17 VAC 0.5 ML SYR IM PRN (19:40)
[2016-11-19] MEDS: CEFTRIAXONE 2 GM/D5W RTU 2 GM/50 ML RTUPB IV SCH (01:00)
[2016-11-19] MEDS: AMPICILLIN SODIUM/SULBACTAM NA 1.5 GM in NORMAL SALINE 50 ML IV SCH ×2 (02:59→08:43)
[2016-11-19] MEDS: ACETAMINOPHEN 325 MG TABLET PO PRN ×2 (03:04→08:43)
[2016-11-19 05:31] LABS: ABSOLUTE BASOPHILS # (AUTO) 0.1 10^3/uL (0.0-0.2); ABSOLUTE EOSINOPHILS # (AUTO) 0.5 10^3/uL (0.0-0.6); ABSOLUTE LYMPHOCYTES (AUTO) 2.5 10^3/uL (0.5-4.7); ABSOLUTE MONOCYTES (AUTO) 0.7 10^3/uL (0.1-1.4); ABSOLUTE NEUT (AUTO) 4.1 10^3/uL (1.7-8.2); BASOPHILS % (AUTO) 1.2 % (0-2); EOSINOPHILS % (AUTO) 6.2 % (0-6); HEMATOCRIT 32.6 % (36.0-47.0); HEMOGLOBIN 11.1 g/dL (12.0-15.5); HGB HCT DIFFERENCE 0.7; LYMPHOCYTES % (AUTO) 31.6 % (13-45); MEAN CORPUSCULAR HEMOGLOBIN 27.6 pg (27.0-33.4); MEAN CORPUSCULAR HGB CONC 34.1 g/dL (32.0-36.0); MEAN CORPUSCULAR VOLUME 81 fl (80-97); MONOCYTES % (AUTO) 9.1 % (3-13); RED BLOOD COUNT 4.02 10^6/uL (3.72-5.28); RED CELL DISTRIBUTION WIDTH 15.5 % (11.5-14.0); SEGMENTED NEUTROPHILS % (AUTO) 51.9 % (42-78)
[2016-11-19] MEDS: ACYCLOVIR SODIUM 750 MG in NORMAL SALINE 250 ML IV SCH (05:34)
[2016-11-19 05:50] LABS: ALANINE AMINOTRANSFERASE 30 U/L (9-52); ALBUMIN 3.6 g/dL (3.5-5.0); ALKALINE PHOSPHATASE 78 U/L (38-126); ANION GAP 12 (5-19); ASPARTATE AMINO TRANSFERASE 19 U/L (14-36); BILIRUBIN,TOTAL 1.6 mg/dL (0.2-1.3); BLOOD UREA NITROGEN 8 mg/dL (7-20); CALCIUM 9.2 mg/dL (8.4-10.2); CARBON DIOXIDE 26 mmol/L (22-30); CHLORIDE 102 mmol/L (98-107); CREATININE RESULT 0.47 mg/dL (0.52-1.25); GLUCOSE 199 mg/dL (75-110); SODIUM 139.9 mmol/L (137-145); TOTAL PROTEIN 6.6 g/dL (6.3-8.2)
[2016-11-19 06:15] LABS: POTASSIUM 3.5 mmol/L (3.6-5.0)
[2016-11-19] MEDS: VANCOMYCIN HCL 750 MG in DEXTROSE 5%-WATER 250 ML IV SCH (06:50)
[2016-11-19] MEDS: METFORMIN HCL 500 MG TABLET PO SCH ×2 (08:43→17:20)
[2016-11-19] MEDS ORDERED: DOXYCYCLINE HYCLATE 100 MG TABLET PO SCH (11:00)
[2016-11-19] MEDS: MAGNESIUM SULFATE/D5W 100 ML IV SCH (11:55)
[2016-11-19] MEDS ORDERED: DOXYCYCLINE HYCLATE 100 MG TABLET PO ONE (12:00)
[2016-11-19 12:37] LABS: JO-1 ANTIBODY <0.2 AI (0.0-0.9)
[2016-11-19] MEDS: LISINOPRIL 10 MG TABLET PO SCH (14:29)
--- NOTE | 2016-11-19 15:10 | PDOC PROGRESS REPORT ---
Subjective Progress Note for:: 11/19/16 Physical Exam Vital Signs: Temp Pulse Resp BP Pulse Ox 98.5 F 75 20 123/64 97 11/19/16 11:46 11/19/16 11:46 11/19/16 11:46 11/19/16 11:46 11/19/16 11:46 Intake & Output 11/18/16 11/19/16 11/20/16 06:59 06:59 07:59 Intake Total 2475 3970 Output Total 4025 1550 Balance -1550 2420 Weight 56.2 kg 57.3 kg Results Laboratory Results: 11/19/16 04:17 11/19/16 04:17 11/19/16 11/19/16 04:17 04:17 WBC 8.0 RBC 4.02 Hgb 11.1 L Hct 32.6 L MCV 81 MCH 27.6 MCHC 34.1 RDW 15.5 H Plt Count 158 Seg Neutrophils % 51.9 Lymphocytes % 31.6 Monocytes % 9.1 Eosinophils % 6.2 H Basophils % 1.2 Absolute Neutrophils 4.1 Absolute Lymphocytes 2.5 Absolute Monocytes 0.7 Absolute Eosinophils 0.5 Absolute Basophils 0.1 Sodium 139.9 Potassium 3.5 L D Chloride 102 Carbon Dioxide 26 Anion Gap 12 BUN 8 Creatinine 0.47 L Est GFR ( Amer) > 60 Est GFR (Non-Af Amer) > 60 Glucose 199 H Calcium 9.2 Total Bilirubin 1.6 H AST 19 ALT 30 Alkaline Phosphatase 78 Total Protein 6.6 Albumin 3.6 11/17/16 04:15 Troponin I < 0.012 Impressions: Chest X-Ray 11/16/16 18:01 IMPRESSION: LOW LUNG VOLUMES. NO SIGNIFICANT RADIOGRAPHIC FINDING IN THE CHEST. Head CT 11/16/16 18:01 IMPRESSION: CHRONIC CHANGES OF ATROPHY AND MICROVASCULAR ISCHEMIA. NO ACUTE PROCESS. Abdomen/Pelvis CT 11/17/16 00:00 IMPRESSION: Gallstone. L1 compression fracture age indeterminate. Chest CT 11/17/16 00:00 IMPRESSION: Dependent atelectasis. 1.7 cm mass in the thyroid gland on the right. Guidance Fluoroscopy 11/17/16 00:00 IMPRESSION: Lumbar puncture under fluoroscopy. No immediate complication. Very limited low volume tap, 1.5 mL of fluid was obtained. Thyroid Ultrasound 11/17/16 00:00 IMPRESSION: Left and right lobe 2 cm complex solid-cystic nodules with internal blood flow demonstrated on color Doppler interrogation. Lumbar Puncture 11/17/16 02:42 IMPRESSION: Lumbar puncture under fluoroscopy. No immediate complication. Very limited low volume tap, 1.5 mL of fluid was obtained. Abdomen Ultrasound 11/17/16 08:15 IMPRESSION: Somewhat limited study as noted above. Gallstones are identified. Other findings as noted above Foot X-Ray 11/18/16 00:00 IMPRESSION: No significant findings. Assessment & Plan - Plan Summary Plan Summary: Right Great toe s/p debridement of necrotic wound , wound is better Continue wound care
--- NOTE | 2016-11-19 17:19 | PDOC PROGRESS REPORT ---
Subjective Progress Note for:: 11/19/16 Subjective:: I have seen patient in presence physical therapy. She was working at the edge of bed at the time of my evaluation. I cannot obtain history or review of systems secondary to communication barriers and associate creative director services have been unable to interpret patient [place] language. Physical Exam Vital Signs: Temp Pulse Resp BP Pulse Ox 97.4 F 89 18 140/82 H 98 11/19/16 15:38 11/19/16 15:38 11/19/16 15:38 11/19/16 15:38 11/19/16 15:38 Intake & Output 11/18/16 11/19/16 11/20/16 06:59 06:59 07:59 Intake Total 2475 3970 713 Output Total 4025 1550 Balance -1550 2420 713 Weight 56.2 kg 57.3 kg GENERAL: No acute distress HEENT: Conjunctiva clear, nonicteric, moist mucous membranes, no JVD, midline trachea RESPIRATORY: Clear to auscultation bilaterally, no wheezes, no rhonchi CARDIAC: Regular rate and rhythm, no murmurs/gallops/rubs ABDOMEN: Soft, nondistended, nontender, positive bowel sounds, no rebound, no guarding EXTREMETIES: No edema, cyanosis, clubbing NEUROLOGIC: Alert, oriented x 3, CN's grossly intact, no focal deficits SKIN: Dressing clean/dry/intact to right first toe PSYCH: Normal mood, normal affect Results Laboratory Results: 11/19/16 04:17 11/19/16 04:17 11/19/16 11/19/16 04:17 04:17 WBC 8.0 RBC 4.02 Hgb 11.1 L Hct 32.6 L MCV 81 MCH 27.6 MCHC 34.1 RDW 15.5 H Plt Count 158 Seg Neutrophils % 51.9 Lymphocytes % 31.6 Monocytes % 9.1 Eosinophils % 6.2 H Basophils % 1.2 Absolute Neutrophils 4.1 Absolute Lymphocytes 2.5 Absolute Monocytes 0.7 Absolute Eosinophils 0.5 Absolute Basophils 0.1 Sodium 139.9 Potassium 3.5 L D Chloride 102 Carbon Dioxide 26 Anion Gap 12 BUN 8 Creatinine 0.47 L Est GFR ( Amer) > 60 Est GFR (Non-Af Amer) > 60 Glucose 199 H Calcium 9.2 Total Bilirubin 1.6 H AST 19 ALT 30 Alkaline Phosphatase 78 Total Protein 6.6 Albumin 3.6 11/17/16 04:15 Troponin I < 0.012 Impressions: Chest X-Ray 11/16/16 18:01 IMPRESSION: LOW LUNG VOLUMES. NO SIGNIFICANT RADIOGRAPHIC FINDING IN THE CHEST. Head CT 11/16/16 18:01 IMPRESSION: CHRONIC CHANGES OF ATROPHY AND MICROVASCULAR ISCHEMIA. NO ACUTE PROCESS. Abdomen/Pelvis CT 11/17/16 00:00 IMPRESSION: Gallstone. L1 compression fracture age indeterminate. Chest CT 11/17/16 00:00 IMPRESSION: Dependent atelectasis. 1.7 cm mass in the thyroid gland on the right. Guidance Fluoroscopy 11/17/16 00:00 IMPRESSION: Lumbar puncture under fluoroscopy. No immediate complication. Very limited low volume tap, 1.5 mL of fluid was obtained. Thyroid Ultrasound 11/17/16 00:00 IMPRESSION: Left and right lobe 2 cm complex solid-cystic nodules with internal blood flow demonstrated on color Doppler interrogation. Lumbar Puncture 11/17/16 02:42 IMPRESSION: Lumbar puncture under fluoroscopy. No immediate complication. Very limited low volume tap, 1.5 mL of fluid was obtained. Abdomen Ultrasound 11/17/16 08:15 IMPRESSION: Somewhat limited study as noted above. Gallstones are identified. Other findings as noted above Foot X-Ray 11/18/16 00:00 IMPRESSION: No significant findings. Assessment & Plan - Diagnosis (1) Sepsis Is this a current diagnosis for this admission?: YesPlan: Likely due to DM right foot infection. Influenza screen negative. Patient has cholelithiasis noted on CT scan of the abdomen and pelvis. Right upper quadrant ultrasound with no acute process. Lumbar puncture does not have any definite evidence of RENTAL COORDINATOR infection, but culture pending. CT scan of the chest is negative for pneumonia. Urinalysis is negative. Discontinue IV antibiotics. Start oral doxycycline. (2) Diabetic foot ulcer Qualifiers: Diabetic foot ulcer location: toe Diabetes mellitus type: type 2 Laterality: right Non-pressure ulcer stage: unspecified non-pressure ulcer stage Qualified Code(s): E11.621 - Type 2 diabetes mellitus with foot ulcer; L97.509 - Non-pressure chronic ulcer of other part of unspecified foot with unspecified severity Is this a current diagnosis for this admission?: YesPlan: Patient is status post incision and drainage by surgery on 11/18/2016. Continue local wound care. (3) New onset type 2 diabetes mellitus Is this a current diagnosis for this admission?: YesPlan: Continue sliding scale insulin coverage. Started metformin 500mg BID. Will need to arrange local PCP after discharge. (4) Cholelithiasis Qualifiers: Cholelithiasis location: gallbladder Cholecystitis presence: without cholecystitis Is this a current diagnosis for this admission?: YesPlan: No infection. (5) Hypokalemia Is this a current diagnosis for this admission?: Yes (6) Hypomagnesemia Is this a current diagnosis for this admission?: Yes (7) Thyroid nodule Is this a current diagnosis for this admission?: YesPlan: Thyroid Ultrasound 11/17/16 00:00 IMPRESSION: Left and right lobe 2 cm complex solid-cystic nodules with internal blood flow demonstrated on color Doppler interrogation. This will need further outpatient workup. - Time Time Spent with patient: 25-34 minutes Anticipated discharge: Home Within: within 48 hours
[2016-11-19] MEDS: INSULIN LISPRO 100 UNIT/ML 3 ML VIAL SUBCUT PRN ×2 (17:45→21:56)
[2016-11-19] MEDS: TRAMADOL HCL 50 MG TABLET PO PRN (17:50)
[2016-11-19] MEDS: DOXYCYCLINE HYCLATE 100 MG TABLET PO SCH (21:51)
[2016-11-20 06:24] LABS: ABSOLUTE BASOPHILS # (AUTO) 0.1 10^3/uL (0.0-0.2); ABSOLUTE EOSINOPHILS # (AUTO) 0.5 10^3/uL (0.0-0.6); ABSOLUTE LYMPHOCYTES (AUTO) 2.9 10^3/uL (0.5-4.7); ABSOLUTE MONOCYTES (AUTO) 0.8 10^3/uL (0.1-1.4); ABSOLUTE NEUT (AUTO) 3.9 10^3/uL (1.7-8.2); BASOPHILS % (AUTO) 0.9 % (0-2); EOSINOPHILS % (AUTO) 6.3 % (0-6); HEMATOCRIT 31.1 % (36.0-47.0); HEMOGLOBIN 10.8 g/dL (12.0-15.5); HGB HCT DIFFERENCE 1.3; LYMPHOCYTES % (AUTO) 35.9 % (13-45); MEAN CORPUSCULAR HEMOGLOBIN 27.8 pg (27.0-33.4); MEAN CORPUSCULAR HGB CONC 34.9 g/dL (32.0-36.0); MEAN CORPUSCULAR VOLUME 80 fl (80-97); MONOCYTES % (AUTO) 9.8 % (3-13); RED CELL DISTRIBUTION WIDTH 15.7 % (11.5-14.0); SEGMENTED NEUTROPHILS % (AUTO) 47.1 % (42-78); WHITE BLOOD COUNT 8.2 10^3/uL (4.0-10.5)
[2016-11-20 06:45] LABS: ANION GAP 10 (5-19); BLOOD UREA NITROGEN 8 mg/dL (7-20); CALCIUM 9.6 mg/dL (8.4-10.2); CARBON DIOXIDE 27 mmol/L (22-30); CHLORIDE 100 mmol/L (98-107); CREATININE RESULT 0.43 mg/dL (0.52-1.25); GLUCOSE 202 mg/dL (75-110); POTASSIUM 3.4 mmol/L (3.6-5.0)
[2016-11-20] MEDS ORDERED: POTASSIUM CHLORIDE 10 MEQ TABLET.SA PO ONE ×2 (07:07→16:53)
[2016-11-20] MEDS: GLIPIZIDE XL 5 MG TAB.ER.24 PO SCH (10:14)
[2016-11-20] MEDS: TRAMADOL HCL 50 MG TABLET PO PRN ×2 (10:14→16:55)
[2016-11-20] MEDS: METFORMIN HCL 500 MG TABLET PO SCH ×2 (10:15→16:56)
[2016-11-20] MEDS: DOXYCYCLINE HYCLATE 100 MG TABLET PO SCH ×2 (10:15→23:07)
[2016-11-20] MEDS: LISINOPRIL 10 MG TABLET PO SCH (16:57)
--- NOTE | 2016-11-20 17:39 | PDOC PROGRESS REPORT ---
Subjective Progress Note for:: 11/20/16 Subjective:: Patient is seen with her son present in the room today. He is able to interpret. Patient has been having pain from her right foot. She is eating and drinking well. Patient denies fever, chills, headache, new focal weakness, chest pain, shortness of breath, abdominal pain, nausea, vomiting, diarrhea, constipation. Physical Exam Vital Signs: Temp Pulse Resp BP Pulse Ox 98.8 F 88 16 123/71 98 11/20/16 15:24 11/20/16 15:24 11/20/16 15:24 11/20/16 15:24 11/20/16 15:24 Intake & Output 11/19/16 11/20/16 11/21/16 05:59 06:59 06:59 Intake Total 1040 Output Total Balance 1040 Weight GENERAL: No acute distress HEENT: Conjunctiva clear, nonicteric, moist mucous membranes, no JVD, midline trachea RESPIRATORY: Clear to auscultation bilaterally, no wheezes, no rhonchi CARDIAC: Regular rate and rhythm, no murmurs/gallops/rubs ABDOMEN: Soft, nondistended, nontender, positive bowel sounds, no rebound, no guarding EXTREMETIES: No edema, cyanosis, clubbing NEUROLOGIC: Alert, oriented x 3, CN's grossly intact, no focal deficits SKIN: Dressing clean/dry/intact to right first toe PSYCH: Normal mood, normal affect Results Laboratory Results: 11/20/16 05:48 11/20/16 05:48 11/20/16 11/20/16 05:48 05:48 WBC 8.2 RBC 3.90 Hgb 10.8 L Hct 31.1 L MCV 80 MCH 27.8 MCHC 34.9 RDW 15.7 H Plt Count 157 Seg Neutrophils % 47.1 Lymphocytes % 35.9 Monocytes % 9.8 Eosinophils % 6.3 H Basophils % 0.9 Absolute Neutrophils 3.9 Absolute Lymphocytes 2.9 Absolute Monocytes 0.8 Absolute Eosinophils 0.5 Absolute Basophils 0.1 Sodium 137.0 Potassium 3.4 L Chloride 100 Carbon Dioxide 27 Anion Gap 10 BUN 8 Creatinine 0.43 L Est GFR ( Amer) > 60 Est GFR (Non-Af Amer) > 60 Glucose 202 H Calcium 9.6 11/17/16 16:15 Cerebral Spinal Fluid - Tube 1 (Csf) Gram Stain - Final 11/17/16 16:15 Cerebral Spinal Fluid - Tube 1 (Csf) CSF Culture - Final NO GROWTH 3 DAYS 11/17/16 04:15 Troponin I < 0.012 Impressions: Chest X-Ray 11/16/16 18:01 IMPRESSION: LOW LUNG VOLUMES. NO SIGNIFICANT RADIOGRAPHIC FINDING IN THE CHEST. Head CT 11/16/16 18:01 IMPRESSION: CHRONIC CHANGES OF ATROPHY AND MICROVASCULAR ISCHEMIA. NO ACUTE PROCESS. Abdomen/Pelvis CT 11/17/16 00:00 IMPRESSION: Gallstone. L1 compression fracture age indeterminate. Chest CT 11/17/16 00:00 IMPRESSION: Dependent atelectasis. 1.7 cm mass in the thyroid gland on the right. Guidance Fluoroscopy 11/17/16 00:00 IMPRESSION: Lumbar puncture under fluoroscopy. No immediate complication. Very limited low volume tap, 1.5 mL of fluid was obtained. Thyroid Ultrasound 11/17/16 00:00 IMPRESSION: Left and right lobe 2 cm complex solid-cystic nodules with internal blood flow demonstrated on color Doppler interrogation. Lumbar Puncture 11/17/16 02:42 IMPRESSION: Lumbar puncture under fluoroscopy. No immediate complication. Very limited low volume tap, 1.5 mL of fluid was obtained. Abdomen Ultrasound 11/17/16 08:15 IMPRESSION: Somewhat limited study as noted above. Gallstones are identified. Other findings as noted above Foot X-Ray 11/18/16 00:00 IMPRESSION: No significant findings. Assessment & Plan - Diagnosis (1) Sepsis Is this a current diagnosis for this admission?: YesPlan: Likely due to DM right foot infection. Influenza screen negative. Patient has cholelithiasis noted on CT scan of the abdomen and pelvis. Right upper quadrant ultrasound with no acute process. Lumbar puncture does not have any definite evidence of RECORDING CLERK infection, but culture pending. CT scan of the chest is negative for pneumonia. Urinalysis is negative. Continue oral doxycycline. (2) Diabetic foot ulcer Qualifiers: Diabetic foot ulcer location: toe Diabetes mellitus type: type 2 Laterality: right Non-pressure ulcer stage: unspecified non-pressure ulcer stage Qualified Code(s): E11.621 - Type 2 diabetes mellitus with foot ulcer; L97.509 - Non-pressure chronic ulcer of other part of unspecified foot with unspecified severity Is this a current diagnosis for this admission?: YesPlan: Patient is status post incision and drainage by surgery on 11/18/2016. Continue local wound care. Change tramadol to scheduled as patient is having difficulty asking for when necessary medication secondary to language barrier. (3) New onset type 2 diabetes mellitus Is this a current diagnosis for this admission?: YesPlan: Continue sliding scale insulin coverage. Started metformin 500mg BID. Start Glucotrol XL 5 mg daily. Will need to arrange local PCP after discharge. Hemoglobin A1c 9.4. (4) Cholelithiasis Qualifiers: Cholelithiasis location: gallbladder Cholecystitis presence: without cholecystitis Is this a current diagnosis for this admission?: YesPlan: No infection. Elective outpatient surgical consult. (5) Hypokalemia Is this a current diagnosis for this admission?: YesPlan: Replace as needed. (6) Hypomagnesemia Is this a current diagnosis for this admission?: Yes (7) Thyroid nodule Is this a current diagnosis for this admission?: YesPlan: Thyroid Ultrasound 11/17/16 00:00 IMPRESSION: Left and right lobe 2 cm complex solid-cystic nodules with internal blood flow demonstrated on color Doppler interrogation. This will need further outpatient workup. (8) Hypertension Is this a current diagnosis for this admission?: YesPlan: Continue lisinopril 10 mg daily. - Time Time Spent with patient: 25-34 minutes
--- NOTE | 2016-11-20 17:48 | PDOC PROGRESS REPORT ---
Physical Exam Vital Signs: Temp Pulse Resp BP Pulse Ox 98.8 F 88 16 123/71 98 11/20/16 15:24 11/20/16 15:24 11/20/16 15:24 11/20/16 15:24 11/20/16 15:24 Intake & Output 11/19/16 11/20/16 11/21/16 05:59 06:59 06:59 Intake Total 1040 Output Total Balance 1040 Weight Extremities exam: PRESENT: other - Right great toe - wound clean continue dressings will follow PRN Results Laboratory Results: 11/20/16 05:48 11/20/16 05:48 11/20/16 11/20/16 05:48 05:48 WBC 8.2 RBC 3.90 Hgb 10.8 L Hct 31.1 L MCV 80 MCH 27.8 MCHC 34.9 RDW 15.7 H Plt Count 157 Seg Neutrophils % 47.1 Lymphocytes % 35.9 Monocytes % 9.8 Eosinophils % 6.3 H Basophils % 0.9 Absolute Neutrophils 3.9 Absolute Lymphocytes 2.9 Absolute Monocytes 0.8 Absolute Eosinophils 0.5 Absolute Basophils 0.1 Sodium 137.0 Potassium 3.4 L Chloride 100 Carbon Dioxide 27 Anion Gap 10 BUN 8 Creatinine 0.43 L Est GFR ( Amer) > 60 Est GFR (Non-Af Amer) > 60 Glucose 202 H Calcium 9.6 11/17/16 16:15 Cerebral Spinal Fluid - Tube 1 (Csf) Gram Stain - Final 11/17/16 16:15 Cerebral Spinal Fluid - Tube 1 (Csf) CSF Culture - Final NO GROWTH 3 DAYS 11/17/16 04:15 Troponin I < 0.012 Impressions: Chest X-Ray 11/16/16 18:01 IMPRESSION: LOW LUNG VOLUMES. NO SIGNIFICANT RADIOGRAPHIC FINDING IN THE CHEST. Head CT 11/16/16 18:01 IMPRESSION: CHRONIC CHANGES OF ATROPHY AND MICROVASCULAR ISCHEMIA. NO ACUTE PROCESS. Abdomen/Pelvis CT 11/17/16 00:00 IMPRESSION: Gallstone. L1 compression fracture age indeterminate. Chest CT 11/17/16 00:00 IMPRESSION: Dependent atelectasis. 1.7 cm mass in the thyroid gland on the right. Guidance Fluoroscopy 11/17/16 00:00 IMPRESSION: Lumbar puncture under fluoroscopy. No immediate complication. Very limited low volume tap, 1.5 mL of fluid was obtained. Thyroid Ultrasound 11/17/16 00:00 IMPRESSION: Left and right lobe 2 cm complex solid-cystic nodules with internal blood flow demonstrated on color Doppler interrogation. Lumbar Puncture 11/17/16 02:42 IMPRESSION: Lumbar puncture under fluoroscopy. No immediate complication. Very limited low volume tap, 1.5 mL of fluid was obtained. Abdomen Ultrasound 11/17/16 08:15 IMPRESSION: Somewhat limited study as noted above. Gallstones are identified. Other findings as noted above Foot X-Ray 11/18/16 00:00 IMPRESSION: No significant findings.
[2016-11-20] MEDS: TRAMADOL HCL 50 MG TABLET PO SCH ×2 (18:19→23:07)
[2016-11-20] MEDS ORDERED: PROMETHAZINE HCL INJ 25 MG/1 ML VIAL IV PRN (20:21)
[2016-11-21] MEDS: TRAMADOL HCL 50 MG TABLET PO SCH (06:05)
[2016-11-21 10:42] VITALS: BP 108/65
[2016-11-21] MEDS: DOXYCYCLINE HYCLATE 100 MG TABLET PO SCH (10:52)
[2016-11-21] MEDS: GLIPIZIDE XL 5 MG TAB.ER.24 PO SCH (10:53)
[2016-11-21] MEDS: METFORMIN HCL 500 MG TABLET PO SCH (10:53)
--- NOTE | 2016-11-21 19:09 | PDOC DISCHARGE SUMMARY ---
General - Admit/Disc Date/PCP Admission Date/Primary Care Provider: 11/17/16 02:47 Discharge Date: 11/21/16 - Discharge Diagnosis (1) Sepsis Is this a current diagnosis for this admission?: Yes (2) Diabetic foot ulcer Is this a current diagnosis for this admission?: Yes (3) New onset type 2 diabetes mellitus Is this a current diagnosis for this admission?: Yes (4) Cholelithiasis Is this a current diagnosis for this admission?: Yes (5) Hypokalemia Is this a current diagnosis for this admission?: Yes (6) Hypomagnesemia Is this a current diagnosis for this admission?: Yes (7) Thyroid nodule Is this a current diagnosis for this admission?: Yes (8) Hypertension Is this a current diagnosis for this admission?: Yes - Additional Information Resuscitation Status: Full Code Discharge Diet: Cardiac, Diabetic Discharge Activity: Activity As Tolerated Home Medications: Acetaminophen [Tylenol 325 mg Tablet] 650 mg PO Q4HP PRN tablet 11/21/16 Doxycycline Hyclate [Vibramycin 100 mg Tablet] 100 mg PO Q12 #20 tablet Glipizide [Glucotrol Xl 5 mg Tab.er] 5 mg PO DAILY #30 tab.er.24 11/21/16 Lisinopril [Prinivil 10 mg Tablet] 10 mg PO DAILY@1500 #30 tablet 11/21/16 Metformin HCl 500 mg PO BID #60 tablet 11/21/16 Tramadol HCl [Ultram 50 mg Tablet] 50 mg PO Q8HP PRN #20 tablet 11/21/16 History of Present Illness Patient complains of: Fever, altered mental status History of Present Illness: ADRIENNE GALLO is a 81 year old known female resident of [facility] , having [place] to be with her son, who presents to the emergency room for evaluation of above. Hospital Course Hospital Course: Patient was admitted for fever and altered mental status. Extensive workup was unremarkable. Patient had obvious infection of her right first toe likely associated with new onset diabetes. She was evaluated by surgery and had incision and drainage. She was placed initially on IV antibiotics. She has not been transitioned to oral doxycycline has remained stable. Her blood count has normalized. Patient is afebrile. Mental status returned baseline. With respect to new-onset diabetes she was started on metformin and Glucotrol XL. Blood glucose is stable at discharge. She is to check Accu-Cheks twice daily and report to primary care provider. Patient did not have a primary care provider as she has recently moved here from [facility] to live with her son. We will arrange follow-up at [facility]. Cholelithiasis, this was noted on imaging. She has no evidence of acute infection. This can be managed as an outpatient electively. Thyroid nodule, this was noted on CT scan and subsequently on thyroid ultrasound. This will need outpatient surgical opinion. Physical Exam Vital Signs: Temp Pulse Resp BP Pulse Ox 98.0 F 88 16 108/65 100 11/21/16 10:41 11/21/16 10:41 11/21/16 10:41 11/21/16 10:41 11/21/16 10:41 Intake & Output 11/20/16 11/21/16 11/22/16 06:59 06:59 06:59 Intake Total 1290 Output Total 490 Balance 800 Weight GENERAL: No acute distress HEENT: Conjunctiva clear, nonicteric, moist mucous membranes, no JVD, midline trachea RESPIRATORY: Clear to auscultation bilaterally, no wheezes, no rhonchi CARDIAC: Regular rate and rhythm, no murmurs/gallops/rubs ABDOMEN: Soft, nondistended, nontender, positive bowel sounds, no rebound, no guarding EXTREMETIES: No edema, cyanosis, clubbing NEUROLOGIC: Alert, oriented x 3, CN's grossly intact, no focal deficits SKIN: Dressing clean/dry/intact to right first toe PSYCH: Normal mood, normal affect Results Laboratory Results: 11/20/16 05:48 11/20/16 05:48 11/17/16 04:15 Troponin I < 0.012 Impressions: Chest X-Ray 11/16/16 18:01 IMPRESSION: LOW LUNG VOLUMES. NO SIGNIFICANT RADIOGRAPHIC FINDING IN THE CHEST. Head CT 11/16/16 18:01 IMPRESSION: CHRONIC CHANGES OF ATROPHY AND MICROVASCULAR ISCHEMIA. NO ACUTE PROCESS. Abdomen/Pelvis CT 11/17/16 00:00 IMPRESSION: Gallstone. L1 compression fracture age indeterminate. Chest CT 11/17/16 00:00 IMPRESSION: Dependent atelectasis. 1.7 cm mass in the thyroid gland on the right. Guidance Fluoroscopy 11/17/16 00:00 IMPRESSION: Lumbar puncture under fluoroscopy. No immediate complication. Very limited low volume tap, 1.5 mL of fluid was obtained. Thyroid Ultrasound 11/17/16 00:00 IMPRESSION: Left and right lobe 2 cm complex solid-cystic nodules with internal blood flow demonstrated on color Doppler interrogation. Lumbar Puncture 11/17/16 02:42 IMPRESSION: Lumbar puncture under fluoroscopy. No immediate complication. Very limited low volume tap, 1.5 mL of fluid was obtained. Abdomen Ultrasound 11/17/16 08:15 IMPRESSION: Somewhat limited study as noted above. Gallstones are identified. Other findings as noted above Foot X-Ray 11/18/16 00:00 IMPRESSION: No significant findings. Qualifiers PATEINT BEING DISCHARGED WITH ANY OF THE FOLLOWING DIAGNOSIS?: No Plan Time Spent: Less than 30 Minutes
== END 2016-11-21 12:04 | disposition home or self-care (01) | DRG 853 ==
LOC: ER 17:56 → UNDOADMIN 11-17 01:36 → EH 11-17 01:36 → ICU 11-17 06:20 → 3S 11-17 22:37
PROVIDERS: ADMIT Family Medicine; ATTEND Family Medicine
PROC: 009U3ZX Drainage of Spinal Canal, Percutaneous Approach, Diagnostic (ICD-10-PCS; 2016-11-17)
PROC: B01B1ZZ Fluoroscopy of Spinal Cord using Low Osmolar Contrast (ICD-10-PCS; 2016-11-17)
PROC: 0J9Q0ZZ Drainage of Right Foot Subcutaneous Tissue and Fascia, Open Approach (ICD-10-PCS; principal; 2016-11-18)
PROC: 0JDQ0ZZ Extraction of Right Foot Subcutaneous Tissue and Fascia, Open Approach (ICD-10-PCS; 2016-11-18)
DX: A41.9 Sepsis, unspecified organism (principal); G93.40 Encephalopathy, unspecified; L02.611 Cutaneous abscess of right foot; E11.621 Type 2 diabetes mellitus with foot ulcer; E11.65 Type 2 diabetes mellitus with hyperglycemia; L97.519 Non-pressure chronic ulcer of other part of right foot with unspecified severity; E87.6 Hypokalemia; E83.42 Hypomagnesemia; K80.20 Calculus of gallbladder without cholecystitis without obstruction; E04.1 Nontoxic single thyroid nodule; I10 Essential (primary) hypertension; Z79.899 Other long term (current) drug therapy; Z79.84 Long term (current) use of oral hypoglycemic drugs
CPT/HCPCS: 36415; 62270; 70450; 71010; 71260; 74177; 76536; 76705; 77003; 80048; 80053; 80076; 80202; 80307; 81001; 82140; 82550; 82553; 82803; 82945; 82962; 83036; 83735; 84100; 84157; 84439; 84443; 84481; 84484; 85025; 85610; 85652; 85730; 86225; 86235; 86430; 87040; 87070; 87086; 87205; 87804; 89050; 93005; 93010; 93976; J0133; J0290; J0295; J0692; J0696; J1100; J1815; J1956; J2405; J2543; J2550; J3370; J3475; J3480; J3490; J7050; J7060

== ENCOUNTER 2016-12-19 16:49 | Emergency (ER) | payer SELFPAY ==
[2016-12-19] MEDS ORDERED: DIPHENHYDRAMINE HCL 50 MG CAPSULE PO ONE (17:58)
--- NOTE | 2016-12-19 18:01 | ER Document Report ---
ED Medical Screen (RME) - General Chief Complaint: Weakness Stated Complaint: WEAKNESS Notes: Patient has been exhibiting an uncontrolled movement of the left side of her body for the past week. She is able to stand, but it's difficult to walk without assistance. The patient indicates that this movement ceases when she is sleeping at night. Patient has no history of any mental illness. Is not on any mental medication such as Haldol or Thorazine. She's not had a history of any head injury. Patient is not from the [place] and does not speak very good Thai. Denies headache. Patient exhibits rather continuous athetoid movement of the left arm, left leg, and left face. However, when she stands, there is very little such movements. Additionally, patient is able to walk without hardly any appearance of uncontrolled movements. PMH: Hypertension, NIDDM. TRAVEL OUTSIDE OF THE [place] IN LAST 30 DAYS: No - Related Data Allergies/Adverse Reactions: No Known Allergies Allergy (Unverified 11/18/16 19:24) Past Medical History Renal/ Medical History: Denies: Hx Peritoneal Dialysis Physical Exam - Vital signs Vitals: Temp Pulse Resp BP Pulse Ox 98.8 F 125 H 16 179/118 H 94 12/19/16 17:18 12/19/16 17:18 12/19/16 17:18 12/19/16 17:18 12/19/16 17:18 Course - Vital Signs Vital signs: Temp Pulse Resp BP Pulse Ox 98.8 F 125 H 16 179/118 H 94 12/19/16 17:18 12/19/16 17:18 12/19/16 17:18 12/19/16 17:18 12/19/16 17:18
[2016-12-19 19:07] LABS: ABSOLUTE BASOPHILS # (AUTO) 0.1 10^3/uL (0.0-0.2); ABSOLUTE EOSINOPHILS # (AUTO) 0.2 10^3/uL (0.0-0.6); ABSOLUTE LYMPHOCYTES (AUTO) 2.8 10^3/uL (0.5-4.7); ABSOLUTE MONOCYTES (AUTO) 0.7 10^3/uL (0.1-1.4); ABSOLUTE NEUT (AUTO) 5.2 10^3/uL (1.7-8.2); BASOPHILS % (AUTO) 1.1 % (0-2); EOSINOPHILS % (AUTO) 2.3 % (0-6); HEMATOCRIT 36.3 % (36.0-47.0); HEMOGLOBIN 12.6 g/dL (12.0-15.5); HGB HCT DIFFERENCE 1.5; LYMPHOCYTES % (AUTO) 31.3 % (13-45); MEAN CORPUSCULAR HEMOGLOBIN 27.6 pg (27.0-33.4); MEAN CORPUSCULAR HGB CONC 34.6 g/dL (32.0-36.0); MEAN CORPUSCULAR VOLUME 80 fl (80-97); MONOCYTES % (AUTO) 7.5 % (3-13); RED BLOOD COUNT 4.55 10^6/uL (3.72-5.28); RED CELL DISTRIBUTION WIDTH 17.7 % (11.5-14.0); SEGMENTED NEUTROPHILS % (AUTO) 57.8 % (42-78); WHITE BLOOD COUNT 8.9 10^3/uL (4.0-10.5)
[2016-12-19 19:18] LABS: ALANINE AMINOTRANSFERASE 29 U/L (9-52); ALBUMIN 4.7 g/dL (3.5-5.0); ALKALINE PHOSPHATASE 75 U/L (38-126); ANION GAP 15 (5-19); ASPARTATE AMINO TRANSFERASE 23 U/L (14-36); BILIRUBIN,DIRECT 0.2 mg/dL (0.0-0.4); BILIRUBIN,TOTAL 1.9 mg/dL (0.2-1.3); BLOOD UREA NITROGEN 7 mg/dL (7-20); CARBON DIOXIDE 27 mmol/L (22-30); CHLORIDE 102 mmol/L (98-107); CREATININE RESULT 0.49 mg/dL (0.52-1.25); GLUCOSE 137 mg/dL (75-110); POTASSIUM 4.2 mmol/L (3.6-5.0); SODIUM 144.3 mmol/L (137-145); TOTAL PROTEIN 7.9 g/dL (6.3-8.2)
--- NOTE | 2016-12-19 20:12 | ER Document Report ---
ED General - General Chief Complaint: Weakness Stated Complaint: WEAKNESS Time seen by provider: 20:05 Notes: Patient is a 81-year-old female that comes emergency department for chief complaint of left sided discomfort and constant movement, she was referred emergency department by Dr. Montanez for choreiform movements and further evaluation. Patient speaks limited Italian, is from [place], has past medical history of type II diabetes and hypertension, states she's been taking medication for these, states she was also started on a new medication about 2 weeks ago for "pain", they are unable to tell me the name of this medication. Patient has not had any other symptoms, is alert and oriented per her son, he denies any fevers, vomiting, or other complaints. Patient reports to her son that she can sleep but while she is awake she is constantly moving. This also seems to improve somewhat when she walks and she is able to get up. TRAVEL OUTSIDE OF THE [place] IN LAST 30 DAYS: No - Related Data Allergies/Adverse Reactions: No Known Allergies Allergy (Unverified 11/18/16 19:24) Past Medical History - General Information source: Patient, Relative - son - Social History Smoking Status: Never Smoker Chew tobacco use (# tins/day): No Frequency of alcohol use: None Drug Abuse: None Lives with: Family Family History: Other - None known to son patient could not answer - Past Medical History Cardiac Medical History: Reports: Hx Hypertension Endocrine Medical History: Reports: Hx Diabetes Mellitus Type 2 Renal/ Medical History: Denies: Hx Peritoneal Dialysis Surgical Hx: Negative Review of Systems - Review of Systems Constitutional: No symptoms reported EENT: No symptoms reported Cardiovascular: No symptoms reported Respiratory: No symptoms reported Gastrointestinal: No symptoms reported Genitourinary: No symptoms reported Female Genitourinary: No symptoms reported Musculoskeletal: See HPI Skin: No symptoms reported Hematologic/Lymphatic: No symptoms reported Neurological/Psychological: See HPI Physical Exam - Vital signs Vitals: Temp Pulse Resp BP Pulse Ox 98.8 F 125 H 16 179/118 H 94 12/19/16 17:18 12/19/16 17:18 12/19/16 17:18 12/19/16 17:18 12/19/16 17:18 Interpretation: Normal - General General appearance: Appears well, Alert In distress: None - Patient does not appear to be in any pain or distress - HEENT Head: Normocephalic, Atraumatic Eyes: Normal Pupils: PERRL - Respiratory Respiratory status: No respiratory distress Chest status: Nontender Breath sounds: Normal Chest palpation: Normal - Cardiovascular Rhythm: Regular, Tachycardia - Borderline Heart sounds: Normal auscultation, S1 appreciated, S2 appreciated Murmur: No - Abdominal Inspection: Normal Distension: No distension Bowel sounds: Normal Tenderness: Nontender Organomegaly: No organomegaly - Back Back: Normal, Nontender - Extremities General upper extremity: Other - Difficult to evaluate strength exam with patient having almost persistent mild arriving movement of the left upper extremity. Normal distal neurovascular exam General lower extremity: Other - Difficult to evaluate strength exam with patient having almost persistent mild arriving movement of the left lower extremity. Normal distal neurovascular exam - Neurological Neuro grossly intact: Yes Cognition: Normal. No: Confused, Inattentive Orientation: AAOx4. No: Disoriented to person, Disoriented to place, Disoriented to time, Disoriented to events Sasha Coma Scale Eye Opening: Spontaneous Jasper Coma Scale Verbal: Oriented Jasper Coma Scale Motor: Obeys Commands Sasha Coma Scale Total: 15 Speech: Normal Cranial nerves: Normal Cerebellar coordination: Normal Motor strength normal: LUE, RUE, LLE, RLE Additional motor exam normals: Equal seamer Sensory: Normal - Psychological Associated symptoms: Normal affect, Normal mood - Skin Skin Temperature: Warm Skin Moisture: Dry Skin Color: Normal Course - Re-evaluation Re-evalutation: Patient with chewing motions and constant left arm and leg gyrations consistent with the appearance of a dystonic reaction. Patient given 50 mg by mouth Benadryl by triage provider, this has not had time to give an effect, will monitor. CT of the head with no acute findings, CBC, chemistry unremarkable, urinalysis pending. Difficult to obtain vital signs because of patient's constant movement. Borderline tachycardia on my examination. Alert and cooperates with a normal neurological exam except for the writhing movements. 12/19/16 20:39 Writhing movements continued on reevaluation all have calm down somewhat, she is still in no distress, requesting something to help her rest/stop. Given small dose of Ativan. After this patient slept soundly. Abnormal movements continued very slightly and intermittently while sleeping. Vital signs normalized. With normal workup, examination suggestive of dystonic reaction, slightly on presentation especially having symptoms for 1 week, however patient has continued to take her medication. Recommended patient stop current medication for "pain", will place on Benadryl, I discussed the patient with Dr. Unger. Patient will follow-up with primary care and return for any concerning or worsening symptoms. - Vital Signs Vital signs: Temp Pulse Resp BP Pulse Ox 98.8 F 106 H 18 139/77 H 97 12/19/16 17:18 12/19/16 20:21 12/19/16 20:21 12/20/16 02:01 12/20/16 02:01 - Laboratory Result Diagrams: 12/19/16 18:39 12/19/16 18:39 Laboratory results interpreted by me: 12/19/16 12/19/16 18:39 18:39 RDW 17.7 H Creatinine 0.49 L Glucose 137 H Total Bilirubin 1.9 H Discharge - Discharge Clinical Impression: Muscle twitching Condition: Stable Disposition: HOME, SELF-CARE Additional Instructions: Examination is suggestive of a dystonic reaction, this could be to the new medication she has, please stop this medications, give Benadryl as prescribed, follow-up within the next 1-2 days with primary care for additional management. I also recommend following up with the neurology referral especially if the symptoms continue. Return the emergency department for confusion, fever, worsening symptoms etc. Prescriptions: Diphenhydramine HCl 25 mg PO Q6 PRN #20 capsule PRN Reason: Referrals: ZIADA ROSARIO MD [ACTIVE STAFF] - Follow up in 3-5 days
[2016-12-19] MEDS ORDERED: LORAZEPAM INJ 2 MG/1 ML VIAL IV ONE (20:38)
[2016-12-19 21:14] LABS: APPEARANCE,URINE CLEAR; BILIRUBIN,URINE NEGATIVE (NEGATIVE); GLUCOSE, URINE NEGATIVE (NEGATIVE); KETONES,URINE NEGATIVE (NEGATIVE); LEUKOCYTE ESTERASE,URINE NEGATIVE (NEGATIVE); NITRITE,URINE NEGATIVE (NEGATIVE); PROTEIN,URINE NEGATIVE (NEGATIVE); URINE SPECIFIC GRAVITY 1.002; UROBILINOGEN,URINE NEGATIVE mg/dL (<2.0)
[2016-12-20 05:20] VITALS: BP 140/81
== END 2016-12-20 06:03 | disposition home or self-care (01) ==
LOC: ER 16:49
DX: R25.3 Fasciculation (principal); R53.1 Weakness
CPT/HCPCS: 99285; 96374; 36415; 85025; 80053; 81001; 70450; J2060

== ENCOUNTER → 2017-10-16 | Outpatient (CLI) | payer OTHER ==
[2017-10-16 18:03] LABS: ALANINE AMINOTRANSFERASE 23 U/L (9-52); ALBUMIN 4.7 g/dL (3.5-5.0); ALKALINE PHOSPHATASE 77 U/L (38-126); ANION GAP 13 (5-19); ASPARTATE AMINO TRANSFERASE 17 U/L (14-36); BILIRUBIN,DIRECT 0.7 mg/dL (0.0-0.4); BLOOD UREA NITROGEN 16 mg/dL (7-20); CALCIUM 10.1 mg/dL (8.4-10.2); CARBON DIOXIDE 28 mmol/L (22-30); CHLORIDE 95 mmol/L (98-107); GLUCOSE 395 mg/dL (75-110); POTASSIUM 4.6 mmol/L (3.6-5.0); TOTAL PROTEIN 7.7 g/dL (6.3-8.2)
== END ==
LOC: CCC 16:24
DX: I10 Essential (primary) hypertension (principal); E11.8 Type 2 diabetes mellitus with unspecified complications
CPT/HCPCS: 36415; 80053